=== PATIENT | male | born 1955 | race Caucasian/White ===

== ENCOUNTER → 2021-05-31 | Outpatient (CLI) | payer OTHER ==
[~2021-05-31] MED LIST: AMLODIPINE BESYL5 MG PO; ATORVASTATIN CA40 MG PO; CARVEDILOL6.25 MG PO; CATAPRES 0.1MG0.1 MG PO; ELIQUIS5 MG PO; GLIPIZIDE-METF1 EAC1 PO; LOSARTAN-HCTZ1 EAC1 PO; MELOXICAM15 MG PO; PERCOCET 5/325 T1 EA PO; SINGULAIR10 MG PO; SYNTHROID75 MCG PO
== END ==
LOC: KOH-I 12:53
DX: R09.89 Other specified symptoms and signs involving the circulatory and respiratory systems (principal); I65.23 Occlusion and stenosis of bilateral carotid arteries
CPT/HCPCS: 93880